=== PATIENT | female | born 1970 | race Caucasian/White ===

== ENCOUNTER 2017-11-11 11:30 | Emergency (ER) | payer OTHER ==
[~2017-11-11] VITALS: Ht 175.3 cm; Wt 72.6 kg
[2017-11-11 11:51] VITALS: BP 124/80
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
[2017-11-11] MEDS ORDERED: ACETAMINOPHEN-1 EAC1 ORAL (14:01)
[2017-11-11] MEDS ORDERED: IBUPROFEN600 MG ORAL (14:01)
[2017-11-11] MEDS ORDERED: NORCO 5-325 TA1 EACH ORAL (14:22)
[2017-11-11 14:32] VITALS: BP 128/76
== END 2017-11-11 15:14 | disposition home or self-care (01) ==
LOC: EMR 12:08
DX: S30.0XXA Contusion of lower back and pelvis, initial encounter (principal); W19.XXXA Unspecified fall, initial encounter; Y93.18 Activity, surfing, windsurfing and boogie boarding; Y92.89 Other specified places as the place of occurrence of the external cause
CPT/HCPCS: 72131; 72192; 81025; 99283

== ENCOUNTER 2017-12-03 12:34 | Emergency (ER) | payer OTHER ==
[~2017-12-03] VITALS: Ht 175.3 cm; Wt 72.6 kg
[~2017-12-03 12:34] MED LIST: ACETAMINOPHEN-1 EAC1 ORAL; IBUPROFEN600 MG ORAL; NORCO 5-325 TA1 EACH ORAL
[2017-12-03] MEDS ORDERED: IBUPROFEN600 MG ORAL (13:37)
[2017-12-03] MEDS ORDERED: ACETAMINOPHEN-1 EAC1 ORAL (14:54)
[2017-12-03 14:58] VITALS: BP 165/92
--- NOTE | 2017-12-03 17:46 | Emergency Room Report ---
History of Present Illness General Chief Complaint: Lower Extremity Injury Source: Patient Present Illness HPI The patient is a 47-year-old female presenting for right foot pain. He states that she was riding a horse and her foot became stuck in the stirrup while the horse moved. She is now experiencing a 10 out of 10 dull ache to the right foot. Does not radiate. Worse with touch and walking. She states that she took a Percocet which her friend gave her and this helped. She denies other symptoms including numbness or tingling Allergies: Coded Allergies: CIPROFLOXACIN (Verified Allergy, Unknown, 11/11/17) Patient History Past Medical History: see triage record Pertinent Family History: none Last Menstrual Period: 11/14/17 Reviewed Nursing Documentation: PMH: Agreed; PSxH: Agreed Nursing Documentation-PMH Past Medical History: No Stated History Review of Systems All Other Systems: negative except mentioned in HPI Physical Exam Vital Signs Date Time Temp Pulse Resp B/P (MAP) Pulse Ox O2 Delivery O2 Flow Rate FiO2 12/03/17 12:37 98.3 70 18 164/89 98 Room Air 98.2 Sp02 EP Interpretation: reviewed, normal General Appearance: no apparent distress, alert, GCS 15, non-toxic Head: normocephalic, atraumatic Eyes: bilateral eye normal inspection, bilateral eye PERRL Musculoskeletal: normal inspection, no calf tenderness, tender - R foot dorsum Neurologic: alert, oriented x3, responsive, motor strength/tone normal, sensory intact, speech normal Psychiatric: judgement/insight normal, memory normal, mood/affect normal, no suicidal/homicidal ideation Skin: normal color, no rash, warm/dry, well hydrated Procedures Splinting Splinting : Consent: Verbal Location: R leg Hand-Made Type: plaster Splint: poserior short Pre-Proc Neuro Vasc Exam: normal Post-Proc Neuro Vasc Exam: normal Patient Tolerated: Well Complications: None Medical Decision Making PA Attestation Dr. Pickering is my supervising physician. Patient management was discussed with my supervising physician Diagnostic Impression: Primary Impression: Foot pain, right ER Course The patient is a 47-year-old female presenting for right foot pain. Ddx considered include but not limited to sprain/strain, fracture, contusion PE: NAD There is tenderness to palpation over the right foot dorsum surface medially. No deformity. No ecchymosis. Full active range of motion intact. X-ray of the right foot is unremarkable. Right leg short posterior splint is placed as a precaution. Patient is provided crutches She is given Rice instructions She is given prescription for Motrin and Tylenol No. 3. ER precautions are given Other X-Ray Diagnostic Results Other X-Ray Diagnostic Results : X-Ray ordered: R foot # of Views/Limited Vs Complete: 3 View Indication: Pain EP Interpretation: Yes PA Xray: Interpretation reviewed, by supervising MD, and agrees with findings. Interpretation: no dislocation, no soft tissue swelling, no fractures Impression: No acute disease Electronically Signed by: Trip Dominguez PA-C Last Vital Signs Date Time Temp Pulse Resp B/P (MAP) Pulse Ox O2 Delivery O2 Flow Rate FiO2 12/03/17 14:58 98.0 68 16 165/92 99 Room Air Status: improved Disposition: HOME, SELF-CARE Condition: Improved Scripts Acetaminophen With Codeine (T#3) (TYLENOL #3 TAB*) Y Tab 1 TAB ORAL Q6HR PRN for For Pain, #10 TAB Prov: TRIP DOMINGUEZANina 12/03/17 Ibuprofen* (MOTRIN*) 600 Mg Tablet 600 MG ORAL Q8H PRN for For Pain, #30 TAB 0 Refills Prov: TRIP [email or web address]. 12/03/17 Patient Instructions: Foot Contusion, RICE for Routine Care of Injuries Additional Instructions: I discussed my findings with the patient. All questions and concerns have been answered. Treatment and medication compliance have been addressed. I advised the patient that they need to follow up with PMD in 3-5 days. Return to ED if pain remains or worsens, numbness or tingling occurs, new rash is noticed, fever is noticed, or if needed for any reason. Patient verbalized understanding of discharge instructions. TRIP DOMINGUEZ December 03, 2017 17:46
--- NOTE | 2017-12-04 10:52 | Diagnostic Imaging Report ---
Indication: Pain Comparison: None Findings: 3 views of the right foot were obtained. No acute fractures, malalignment, erosions or periostitis are identified. Soft tissues are unremarkable. Impression: No acute findings.
== END 2017-12-03 15:15 | disposition home or self-care (01) ==
LOC: EMR 13:02
DX: M79.671 Pain in right foot (principal)
CPT/HCPCS: 29515; 99284